=== PATIENT | male | born 1950 | race Caucasian/White ===

== ENCOUNTER → 2016-09-01 | Outpatient (CLI) | payer OTHER ==
[~2016-09-01] MED LIST: NEURONTIN100 MG/CAP PO
== END ==
LOC: COL.RAD 07:57
DX: M51.26 Other intervertebral disc displacement, lumbar region (principal)

== ENCOUNTER → 2017-08-27 | Outpatient (REF) ==
[2017-08-27 09:50] LABS: THYROID STIMULATING HORMONE 9.81 uIU/mL (0.465-4.680)
[2017-08-27 11:12] LABS: PSA-TOTAL 3.07 ng/mL (0-4)
== END ==
LOC: ZLAB.WCH 08:40
PROVIDERS: Internal Medicine
DX: Z01.89 Encounter for other specified special examinations (principal)
CPT/HCPCS: G0103

== ENCOUNTER → 2017-08-30 | Outpatient (REF) | LOC: ZLAB.WCH 18:09 | DX: Z01.89 Encounter for other specified special examinations (principal) ==

== ENCOUNTER 2018-04-19 09:44 | Day surgery (SDC) | payer OTHER, MEDICARE ==
[2018-04-19] VITALS (10 sets, daily range): BP systolic 120–147; BP diastolic 62–80; PULSE 53–78; TEMP 98.2
[~2018-04-19] VITALS: Ht 175.3 cm; Wt 73.2 kg
[2018-04-19 10:30] LABS: HEMATOCRIT 45.5 % (42.0-52.0); HEMOGLOBIN 15.2 g/dl (13.5-18.0); MEAN CELL VOLUME 94 fl (80.0-100.0); MEAN CORPUSCULAR HEMOGLOBIN 32 pg (27.0-31.0); MEAN CORPUSCULAR HGB CONC 33 g/dl (33.0-37.0); MEAN PLATELET VOLUME 8.5 fl (7.4-10.4); PLATELET COUNT 366 K/mm3 (130-400); RED BLOOD COUNT 4.82 M/mm3 (4.20-5.60); REDCELL DISTRIBUTION WIDTH-CV 12.5 % (11.5-14.5)
[2018-04-19 10:34] LABS: PROTHROMBIN TIME 11.1 SECONDS (9.7-12.8)
[2018-04-19] MEDS ORDERED: SYNTHROID0.05 MG/TA PO (10:42)
[2018-04-19] MEDS ORDERED: TOPROL XL 25MG25 MG PO (10:42)
[2018-04-19 10:43] LABS: CALCIUM 9.3 mg/dL (8.4-10.2); CREATININE, serum 0.76 mg/dL (0.66-1.25); POTASSIUM 4.8 mmol/L (3.4-5.0)
[2018-04-19] MEDS ORDERED: VITAMIN C500 MG PO (10:43)
[2018-04-19] MEDS ORDERED: MULTI VITAMINS1 TAB PO (10:43)
[2018-04-19] MEDS ORDERED: ASPIRIN 81M81 MG/TA2 PO (10:44)
[2018-04-19] MEDS ORDERED: VITAMIND3 5000 PO (10:44)
[2018-04-19] MEDS ORDERED: ALTACE 5MG5 MG PO (10:45)
[2018-04-19] MEDS ORDERED: ALDACTONE 25MG25 M1 PO (12:39)
== END 2018-04-19 16:15 | disposition home or self-care (01) ==
LOC: COL.CAR 09:44
PROVIDERS: Internal Medicine Cardiovascular Disease
DX: I44.7 Left bundle-branch block, unspecified (principal); E03.9 Hypothyroidism, unspecified; E74.39 Other disorders of intestinal carbohydrate absorption; I51.89 Other ill-defined heart diseases; Z79.82 Long term (current) use of aspirin; Z87.891 Personal history of nicotine dependence; Z82.49 Family history of ischemic heart disease and other diseases of the circulatory system
CPT/HCPCS: C1769; J1644; J2250; J3010; Q9967

== ENCOUNTER 2018-07-22 11:39 | Day surgery (SDC) | payer OTHER, MEDICARE ==
[~2018-07-22] VITALS: Ht 177.8 cm; Wt 73.0 kg
[2018-07-22] VITALS (9 sets, daily range): BP systolic 108–145; BP diastolic 64–84; PULSE 48–69; TEMP 97.5–99
[~2018-07-22 11:39] MED LIST changes: +ALDACTONE 25MG25 M1 PO; +ALTACE 5MG5 MG PO; +ASPIRIN 81M81 MG/TA2 PO; +MULTI VITAMINS1 TAB PO; +SYNTHROID0.05 MG/TA PO; +TOPROL XL 25MG25 MG PO; +VITAMIN C500 MG PO; +VITAMIND3 5000 PO
[2018-07-22 12:21] LABS: HEMOGLOBIN 14.6 g/dl (13.5-18.0); MEAN CELL VOLUME 95 fl (80.0-100.0); MEAN CORPUSCULAR HEMOGLOBIN 32 pg (27.0-31.0); MEAN CORPUSCULAR HGB CONC 33 g/dl (33.0-37.0); MEAN PLATELET VOLUME 9.3 fl (7.4-10.4); PLATELET COUNT 328 K/mm3 (130-400); RED BLOOD COUNT 4.61 M/mm3 (4.20-5.60); REDCELL DISTRIBUTION WIDTH-CV 12.5 % (11.5-14.5)
[2018-07-22 12:28] LABS: PROTHROMBIN TIME 11.2 SECONDS (9.7-12.8)
[2018-07-22 12:44] LABS: CALCIUM 9.6 mg/dL (8.4-10.2); CREATININE, serum 0.86 mg/dL (0.66-1.25); POTASSIUM 4.8 mmol/L (3.4-5.0)
[2018-07-22] MEDS ORDERED: EPA FISH OIL1 SGL PO (13:22)
[2018-07-22] MEDS ORDERED: ALDACTONE 25MG25 M1 PO (13:25)
[2018-07-23 04:58] VITALS: BP 113/65; PULSE 66; TEMP 98
[2018-07-23 08:00] VITALS: BP 125/65; PULSE 72; TEMP 98.7
[2018-07-23] MEDS ORDERED: CEPHALEXIN500 M1 PO (10:22)
== END 2018-07-23 12:15 | disposition home or self-care (01) ==
LOC: COL.CAR 11:39 → MEDICAL 16:31 → COL.CAR 07-23 12:15
PROVIDERS: Internal Medicine Cardiovascular Disease
DX: I42.8 Other cardiomyopathies (principal); I44.7 Left bundle-branch block, unspecified; I34.0 Nonrheumatic mitral (valve) insufficiency; Z87.891 Personal history of nicotine dependence; Z79.82 Long term (current) use of aspirin; Z79.899 Other long term (current) drug therapy; E74.39 Other disorders of intestinal carbohydrate absorption
CPT/HCPCS: OP; J0690; J2250; J3010; J7030; Q9967

== ENCOUNTER 2021-02-17 08:40 | Inpatient (IN) | payer MEDICARE ==
[~2021-02-17] VITALS: Ht 175.3 cm; Wt 72.8 kg
[~2021-02-17 08:40] MED LIST changes: +CEPHALEXIN500 M1 PO; +EPA FISH OIL1 SGL PO; +MASON NATURAL2000 IU PO; -VITAMIND3 5000 PO
[2021-03-24 09:32] LABS: HEMATOCRIT 43.4 % (42.0-52.0); HEMOGLOBIN 14.3 g/dl (13.5-18.0); MEAN CELL VOLUME 94 fl (80.0-100.0); MEAN CORPUSCULAR HEMOGLOBIN 31 pg (27.0-31.0); MEAN CORPUSCULAR HGB CONC 33 g/dl (33.0-37.0); MEAN PLATELET VOLUME 8.7 fl (7.4-10.4); PLATELET COUNT 312 K/mm3 (130-400); RED BLOOD COUNT 4.63 M/mm3 (4.20-5.60); REDCELL DISTRIBUTION WIDTH-CV 12.5 % (11.5-14.5)
[2021-03-24 09:38] LABS: ALBUMIN 4.3 gm/dL (3.5-5.0); BILIRUBIN,TOTAL 0.2 mg/dL (0.0-1.0); CALCIUM 9.3 mg/dL (8.4-10.2); CREATININE, serum 0.92 (0.66-1.25); POTASSIUM 4.5 mmol/L (3.4-5.0); TOTAL PROTEIN 7.4 gm/dL (6.4-8.2)
[2021-03-25] VITALS (11 sets, daily range): BP systolic 142–166; BP diastolic 65–87; PULSE 59–73; TEMP 97.1–98.7
[2021-03-25 10:36] LABS: BASO % 0.4 % (0.0-2.0); EOS # 0.2 (0.0-0.7); EOS % 2.4 % (0-4.0); GRAN # 4.4 (1.4-6.5); GRAN % 61.2 % (42.2-75.2); HEMATOCRIT 39.9 % (42.0-52.0); HEMOGLOBIN 13.6 g/dl (13.5-18.0); LYMPH # 1.8 (1.2-3.4); LYMPH % 25.3 % (20.0-51.0); MEAN CELL VOLUME 91 fl (80.0-100.0); MEAN CORPUSCULAR HEMOGLOBIN 31 pg (27.0-31.0); MEAN CORPUSCULAR HGB CONC 34 g/dl (33.0-37.0); MONO # 0.7 (0.1-0.6); MONO % 10.3 % (1.7-9.3); PLATELET COUNT 330 K/mm3 (130-400); RED BLOOD COUNT 4.38 M/mm3 (4.20-5.60); REDCELL DISTRIBUTION WIDTH-CV 12.9 % (11.5-14.5)
[2021-03-25] MEDS ORDERED: VITAMIN C500 MG PO (10:36)
[2021-03-25] MEDS ORDERED: PHARMASSURE ZIN50 MG PO (10:37)
[2021-03-25] MEDS ORDERED: ONE-A-DAY ESSE1 EACH PO (10:38)
--- NOTE | 2021-03-25 15:50 | NUR ---
PATIENT ADMITED INTO ROOM 345 POST OP ROBOTIC PROSTATE. ORIENTED BUT VERY DROWSY. VSS. DENIES PAIN OR NAUSEA. IV FLUIDS INFUSING INTO LEFT HAND. LIN TO DD WITH SMALL AMOUNTS OF PINK COLORED URINE NOTED. ABD LAP SITES X5 ARE WELL APPROXIMATED WITH GLUED CLOSURE. CARMELO DRAIN TO COMPRESSION WITH NO DRAINAGE NOTED. HEAD TO TOE ASSESSMENT COMPLETE. SCD'S TO BLE. DAUGHTER AT BEDSIDE. ORIENTED TO ROOM. CALL LIGHT IN REACH.
--- NOTE | 2021-03-25 21:06 | NUR ---
PATIENT RESTING IN BED C/O NAUSEA, ZOFRAN IV GIVEN ORDERED. 5 LAP SITES INTACT. LEFT SITE J-P DRAIN WITH BLOODY DRAINAGE. NO DDRAINAGE NOTED ON CARMELO BULP. VSS. + FLATUS. BSX4 QUADRANTS PRESENT. TORADOL GIVEN ORDERED FOR PAIN. LIN CATHETER WITH BLOODY COLOR URINE. CALL LIGHT WITHIN REACH. WILL CONTINUE TO MONITOR.
--- NOTE | 2021-03-25 21:27 | NUR ---
CARMELO DRAINE TO SUCTION WITH NO DRAINAGE. SITE IS BLOODY UNDER THE TEGADERM DRESSING. DR. QUEEN MADE AWARE, ADVISE TO MONITOR. WILL REACCESS IN THE MORNING.
[2021-03-26 03:59] VITALS: BP 150/68; PULSE 91; TEMP 98
[2021-03-26 08:08] VITALS: BP 129/65; PULSE 65; TEMP 98.4
[2021-03-26 08:29] LABS: HEMATOCRIT 37.8 % (42.0-52.0); HEMOGLOBIN 12.4 g/dl (13.5-18.0)
[2021-03-26 08:42] LABS: CALCIUM 9.1 mg/dL (8.4-10.2); CREATININE, serum 0.96 (0.66-1.25)
--- NOTE | 2021-03-26 09:35 | NUR ---
Initial visit; Patient thanked Bar Host/Hostess for looking in on him and offering encouragement and God's blessings.
--- NOTE | 2021-03-26 10:10 | NUR ---
Patient alert and oriented, answers questions appropriately. See assessment. Abdomen soft, tender, non distended. Bowel sounds active x4 quads. +Flatus. Lap sites to abdomen with edges well approximated, no redness or drainage noted. CARMELO drain in place to LLQ, unable to keep bulb compressed, bulb changed, compression achieved. Scant amount of serosanguinous drainage noted. CARMELO dressing with drainage noted. Eugene catheter patent, draining dark elyssa urine. ERAS protocol reviewed with patient. No c/o at this time.
[2021-03-26 11:48] VITALS: BP 123/59; PULSE 68; TEMP 98
--- NOTE | 2021-03-26 13:50 | NUR ---
Plan is to return home with Carolyn . Secondary Contact is Dtr Jesica [phone]. SW met patient in the room with . Patient gave permission to talk about care with . Patient reports that he sees Dr. Bernabe as PCP due for yearly exam. Other specialist is Dr. Figueroa. Patient reports that he has a Pacemaker but no other DME supports. Patient reports that he would like to know how to care for the catheter andhow soon he can shower. Educated deferment to nurse about that care. Denies having a POA. Patient reports that will help transport home. Denies any concerns and reports independency. SW educated that on services through Case management. Pending DC>
--- NOTE | 2021-03-26 17:07 | NUR ---
Discharge instructions reviewed with patient and spouse, verbalized understanding. CARMELO drain removed at 1500, 4x4 and tegaderm over site. Barriga catheter cares, how to change bag and how to keep barriga clean, reviewed with patient and spouse with return demonstration. Patient discharged via wheelchair to auto/home with spouse at [id number].
== END 2021-03-26 15:18 | disposition home or self-care (01) | DRG 708 ==
LOC: SURG 03-25 09:36 → INPTSU 03-25 09:36 → SURG 03-25 11:45
PROVIDERS: ADMIT Urology
PROC: 07BC4ZX Excision of Pelvis Lymphatic, Percutaneous Endoscopic Approach, Diagnostic (ICD-10-PCS; 2021-03-25)
PROC: 0VT04ZZ Resection of Prostate, Percutaneous Endoscopic Approach (ICD-10-PCS; principal; 2021-03-25 11:45)
DX: C61 Malignant neoplasm of prostate (principal)
CPT/HCPCS: A4314; J0690; J1100; J1885; J2250; J2405; J2704; J2795; J7120